=== PATIENT | female | born 1990 | race Two or more races ===

== ENCOUNTER 2019-12-03 21:39 | Emergency (ER) | payer MEDICAID ==
[~2019-12-03] VITALS: Ht 157.5 cm; Wt 57.0 kg
[2019-12-03] MEDS ORDERED: IBUPROFEN 600MG TABLET PO ONE (23:00)
[2019-12-03 23:03] LABS: CLARITY URINE CLEAR (CLEAR); COLOR URINE YELLOW (YELLOW); KETONES URINE NEGATIVE (NEGATIVE); LEUKOCYTE ESTERASE URINE NEGATIVE (NEGATIVE); NITRITE URINE NEGATIVE (NEGATIVE); OCCULT BLOOD URINE NEGATIVE (NEGATIVE); PH URINE 6.5 (4.5-8.0); PROTEIN URINE NEGATIVE (NEGATIVE); SPECIFIC GRAVITY URINE 1.026 (1.005-1.030)
[2019-12-03 23:34] VITALS: BP 120/78
== END 2019-12-03 23:36 | disposition home or self-care (01) ==
LOC: ER 21:39
DX: J06.9 Acute upper respiratory infection, unspecified (principal); M54.41 Lumbago with sciatica, right side
CPT/HCPCS: 81003; 81025; 87070; 87430; 99283